=== PATIENT | male | born 1975 | race Two or more races ===

== ENCOUNTER 2020-05-04 13:41 | Inpatient (IN) | payer OTHER ==
--- NOTE | 2020-05-04 14:16 | EKG REPORT ---
SEVERITY:- ABNORMAL ECG - SINUS TACHYCARDIA MARKEDLY POSTERIOR QRS AXIS CONSIDER ANTERIOR INFARCT BORDERLINE PROLONGED QT INTERVAL : Confirmed by: Khushboo Beth MD 04-May-2020 14:15:29
--- NOTE | 2020-05-04 14:30 | ER Document Report ---
ED Medical Screen (RME) - General Chief Complaint: Abnormal Lab Results Stated Complaint: LIGHTHEADED,ABNORMAL LABS Time Seen by Provider: 05/04/20 14:05 Notes: HPI: 45-year-old male history of tachycardia presenting for evaluation of increased frequency of urination and increased thirst over the last 3 to 4 weeks. Patient [facility]. States that he had lab work done there yesterday and they told him that his blood glucose was greater than 600 and to come to the emergency department today. Patient reports some nausea vomiting over the last 3 to 4 days denies abdominal pain. Denies chest pain shortness of breath PHYSICAL EXAMINATION: Patient appears dehydrated. He is moderately tachycardic. No abdominal pain on palpation. discussed with Princess RIBEIRO regarding need for placement I have greeted and performed a rapid initial assessment of this patient. A comprehensive ED assessment and evaluation of the patient, analysis of test results and completion of medical decision making process will be conducted by an additional ED providers. Please note that clinical decision making for this patient was made during the 2019 pandemic of novel coronavirus which caused a significant strain on the healthcare system including at this particular facility. Criteria for admission discharge and level of care decisions as well as treatment decisions have necessarily changed - Related Data Allergies/Adverse Reactions: No Known Allergies Allergy (Verified 05/04/20 14:13) Physical Exam - Vital signs Vitals: Temp Pulse Resp BP Pulse Ox 98.0 F 131 H 20 141/97 H 97 05/04/20 14:02 05/04/20 14:02 05/04/20 14:02 05/04/20 14:02 05/04/20 14:02 Course - Vital Signs Vital signs: Temp Pulse Resp BP Pulse Ox 98.0 F 131 H 20 141/97 H 97 05/04/20 14:02 05/04/20 14:02 05/04/20 14:02 05/04/20 14:02 05/04/20 14:02
[2020-05-04] MEDS: NORMAL SALINE 1000 ML 1,000 ML IV PRN ×2 (14:54→16:43)
[2020-05-04 15:02] LABS: VENOUS BLOOD BASE EXCESS -7.6 mmol/L; VENOUS BLOOD HCO3 19.7 mmol/L (20-32); VENOUS BLOOD PCO2 46.2 mmHg (35-63); VENOUS BLOOD PH 7.25 (7.30-7.42)
[2020-05-04 15:21] LABS: ALBUMIN 4.9 g/dL (3.5-5.0); ALKALINE PHOSPHATASE 243 U/L (38-126); ASPARTATE AMINO TRANSFERASE 26 U/L (17-59); BILIRUBIN,DIRECT 0.4 mg/dL (0.0-0.4); BILIRUBIN,TOTAL 1.6 mg/dL (0.2-1.3); BLOOD UREA NITROGEN 35 mg/dL (7-20); CALCIUM 10.6 mg/dL (8.4-10.2); CHLORIDE 87 mmol/L (98-107); TOTAL PROTEIN 8.6 g/dL (6.3-8.2)
[2020-05-04 15:29] LABS: CARBON DIOXIDE 16 mmol/L (22-30)
[2020-05-04 15:35] LABS: APPEARANCE,URINE CLEAR; BILIRUBIN,URINE NEGATIVE (NEGATIVE); COLOR,URINE COLORLESS; GLUCOSE, URINE >=500 mg/dL (NEGATIVE); KETONES,URINE 20 mg/dL (NEGATIVE); LEUKOCYTE ESTERASE,URINE NEGATIVE (NEGATIVE); NITRITE,URINE NEGATIVE (NEGATIVE); PROTEIN,URINE NEGATIVE (NEGATIVE); URINE SPECIFIC GRAVITY 1.028; UROBILINOGEN,URINE NEGATIVE mg/dL (<2.0)
[2020-05-04 15:40] LABS: ANION GAP 29 (5-19)
[2020-05-04 15:42] LABS: GLUCOSE 1537 mg/dL (75-110); POTASSIUM 7.2 mmol/L (3.6-5.0)
[2020-05-04] MEDS ORDERED: INSULIN REG, HUMAN 100 UNIT/ML 3 ML VIAL (PYX) IV ONE ×2 (15:45→16:03)
--- NOTE | 2020-05-04 15:56 | ER Document Report ---
ED General - General Chief Complaint: High Blood Sugar Stated Complaint: LIGHTHEADED,ABNORMAL LABS Time Seen by Provider: 05/04/20 14:05 - HPI Notes: Patient is a 45-year-old male presents the emergency department for evaluation. [facility] He was told to come to the emergency room. He states that he has had polyuria and polydipsia, specifically nocturia, for the last several weeks. He denies any pain. He has had nausea with approximately 6 episodes of nonbloody, nonbilious emesis in the last 24 hours. Normal bowel movements. Patient has a history of hypertension, supposed to be taking lisinopril, but states that his labs were supposed to be fasting, so he stopped taking the lisinopril so it "would not mess up his labs." - Related Data Allergies/Adverse Reactions: No Known Allergies Allergy (Verified 05/04/20 14:13) Home Medications: Lisinopril, currently not taking Past Medical History - General Information source: Patient - Social History Smoking Status: Never Smoker Chew tobacco use (# tins/day): No Frequency of alcohol use: None Drug Abuse: None Family History: CVA - Father Patient has homicidal ideation: No - Past Medical History Cardiac Medical History: Reports: Hx Hypertension Review of Systems - Review of Systems Constitutional: Malaise, Weakness EENT: No symptoms reported Cardiovascular: No symptoms reported Respiratory: No symptoms reported Gastrointestinal: See HPI Genitourinary: See HPI Musculoskeletal: No symptoms reported Skin: No symptoms reported Neurological/Psychological: No symptoms reported Physical Exam - Vital signs Vitals: Temp Pulse Resp BP Pulse Ox 98.0 F 131 H 20 141/97 H 97 05/04/20 14:02 05/04/20 14:02 05/04/20 14:02 05/04/20 14:02 05/04/20 14:02 - Notes Notes: Vital signs reviewed, please refer to chart. Head is normocephalic, atraumatic. Pupils equal round, reactive to light. Neck is supple without meningismus. Heart is mildly tachycardic with normal S1-S2. Lungs are clear to auscultation bilaterally. Abdomen is soft, nontender, normoactive bowel sounds throughout. Extremities without cyanosis, clubbing. Posterior calves are nontender. Peripheral pulses are equal. Skin is warm and dry. Patient is awake, alert, oriented x3. Cranial nerves II - XII are grossly intact without focal neurological deficits. Strength is plus 5 out of 5 bilateral upper and lower extremities. Sensation is intact. Reflexes symmetrical. Intact [id number], rapid alternating movements, [id number]. Course - Re-evaluation Re-evalutation: 05/04/20 15:54 Patient presents emergency department for evaluation. He had laboratory investigations as ordered through triage. Initially he was tachycardic, IV fluids ordered. He is markedly hyperkalemic at this time, but likely has a total body potassium deficit. He does not have any QRS prolongation, EKG does reveal very mildly peaked T waves. He is started on insulin drip. Findings were explained to the patient. I will contact medicine for admission. 05/04/20 16:[address] De La Rosa. He requests an insulin bolus, and I had considered that given his hyperkalemia. He also request the administration of calcium, as well as blood cultures and a chest x-ray. These are all ordered. He states that the patient will not be able to be accepted to [facility] until his potassium is lower. A repeat basic metabolic panel is ordered for 1700. Patient remained stable. 05/04/20 18:21 Patient remained stable. Laboratory investigations reviewed, blood sugar remains over thousand, but potassium is improved. His bicarb is actually decreased at this time. I went to contact Dr. De La Rosa, was notified that he was in the room. - Vital Signs Vital signs: Temp Pulse Resp BP Pulse Ox 97.9 F 109 H 15 133/83 H 96 05/05/20 10:00 05/05/20 07:40 05/05/20 07:40 05/05/20 07:40 05/05/20 07:40 - Laboratory Results Result Diagrams: 05/05/20 02:27 05/05/20 07:01 Laboratory Results Interpreted: 05/04/20 05/04/20 05/04/20 14:47 14:47 14:47 RBC Hgb Hct MCHC RDW Lymph % (Auto) Absolute Neuts (auto) Seg Neutrophils % VBG pH 7.25 L VBG HCO3 19.7 L Sodium 132.3 L Potassium 7.2 H* Chloride 87 L Carbon Dioxide 16 L Anion Gap 29 H BUN 35 H Creatinine 1.59 H Est GFR ( Amer) 58 L Est GFR (MDRD) Non-Af 48 L Glucose 1537 H* Calcium 10.6 H Total Bilirubin 1.6 H Alkaline Phosphatase 243 H Total Protein 8.6 H Urine Glucose (UA) >=500 H Urine Ketones 20 H Urine Blood SMALL H 05/04/20 05/04/20 16:23 17:20 RBC 6.05 H Hgb 18.4 H Hct 58.2 H MCHC 31.7 L RDW 14.1 H Lymph % (Auto) 10.6 L Absolute Neuts (auto) 8.5 H Seg Neutrophils % 83.9 H VBG pH VBG HCO3 Sodium 146.5 H Potassium Chloride Carbon Dioxide 13 L Anion Gap 27 H BUN 34 H Creatinine 1.44 H Est GFR ( Amer) Est GFR (MDRD) Non-Af 54 L Glucose 1024 H* Calcium 10.3 H Total Bilirubin Alkaline Phosphatase Total Protein Urine Glucose (UA) Urine Ketones Urine Blood Critical Laboratory Results Reviewed: Yes Attending or Supervising Physician who Reviewed Labs: EMERSON WOODS - Radiology Results Critical Radiology Results Reviewed: No Critical Results - EKG Interpretation by Me Additional EKG results interpreted by me: 05/04/20 15:55 Sinus tachycardia with a rate of 123 beats minute. Right axis deviation. Question abnormal lead placement. Borderline prolonged QT interval but normal QRS duration. No acute ST changes concerning for ischemia or infarction. Critical Care Note - Critical Care Note Total time excluding time spent on procedures (mins): 40 Discharge - Discharge Clinical Impression: DKA (diabetic ketoacidoses), Hyperkalemia Condition: Stable Disposition: ADMITTED INPATIENT Admitting Provider: Rj (Hospitalist) Unit Admitted: [facility]
[2020-05-04] MEDS ORDERED: NORMAL SALINE 1000 ML 1,000 ML IV ONE (16:00)
[2020-05-04] MEDS ORDERED: CALCIUM GLUCONATE 1000 MG/10 ML INJ IV ONE (16:03)
--- NOTE | 2020-05-04 16:31 | RADIOLOGY REPORT (SQ) ---
EXAM DESCRIPTION: CHEST SINGLE VIEW IMAGES COMPLETED DATE/TIME: 05/04/2020 4:21 pm REASON FOR STUDY: new DKA COMPARISON: None. NUMBER OF VIEWS: One view. TECHNIQUE: Single frontal radiographic view of the chest acquired. LIMITATIONS: None. FINDINGS: LUNGS AND PLEURA: No opacities, masses or pneumothorax. No pleural effusion. MEDIASTINUM AND HILAR STRUCTURES: No masses. Contour normal. HEART AND VASCULAR STRUCTURES: Heart normal in size. Normal vasculature. BONES: No acute findings. HARDWARE: None in the chest. OTHER: No other significant finding. IMPRESSION: NO SIGNIFICANT RADIOGRAPHIC FINDING IN THE CHEST. TECHNICAL DOCUMENTATION: JOB ID: [id number] 2010 [employer]- All Rights Reserved Reading location - IP/workstation name: [email or web address]
[2020-05-04 16:43] LABS: ABSOLUTE BASOPHILS # (AUTO) 0.1 10^3/uL (0.0-0.2); ABSOLUTE LYMPHOCYTES (AUTO) 1.1 10^3/uL (0.5-4.7); ABSOLUTE MONOCYTES (AUTO) 0.5 10^3/uL (0.1-1.4); ABSOLUTE NEUT (AUTO) 8.5 10^3/uL (1.7-8.2); BASOPHILS % (AUTO) 0.5 % (0-2); HEMOGLOBIN 18.4 g/dL (13.5-17.0); LYMPHOCYTES % (AUTO) 10.6 % (13-45); MEAN CORPUSCULAR HEMOGLOBIN 30.5 pg (27.0-33.4); MEAN CORPUSCULAR HGB CONC 31.7 g/dL (32.0-36.0); MEAN CORPUSCULAR VOLUME 96 fl (80-97); PLATELET COUNT 315 10^3/uL (150-450); RED BLOOD COUNT 6.05 10^6/uL (4.35-5.55); RED CELL DISTRIBUTION WIDTH 14.1 % (11.5-14.0); SEGMENTED NEUTROPHILS % (AUTO) 83.9 % (42-78); TOTAL CELLS COUNTED % (AUTO) 100 %; WHITE BLOOD COUNT 10.1 10^3/uL (4.0-10.5)
[2020-05-04 16:45] LABS: HEMATOCRIT 58.2 % (37.9-51.0)
[2020-05-04 17:55] LABS: BLOOD UREA NITROGEN 34 mg/dL (7-20); CALCIUM 10.3 mg/dL (8.4-10.2)
[2020-05-04 18:08] LABS: CARBON DIOXIDE 13 mmol/L (22-30); CHLORIDE 107 mmol/L (98-107)
[2020-05-04 18:14] LABS: ANION GAP 27 (5-19)
[2020-05-04 18:15] LABS: GLUCOSE 1024 mg/dL (75-110)
[2020-05-04] MEDS ORDERED: ACETAMINOPHEN 325 MG TABLET PO PRN (18:26)
[2020-05-04] MEDS ORDERED: ONDANSETRON HCL INJ/PF 4 MG/2 ML SDV IV PRN (18:32)
[2020-05-04] MEDS ORDERED: DEXTROSE 50%-WATER 25 GM/50 ML DISP.SYRIN IV PRN ×2 (18:36)
[2020-05-04] MEDS ORDERED: GLUCAGON,HUMAN RECOMB 1 MG INJ IM PRN (18:36)
[2020-05-04] MEDS ORDERED: DEXTROSE 40% GEL 15 GM TUBE PO PRN ×2 (18:36)
[2020-05-04] MEDS ORDERED: 1/2 NORMAL SALINE 1,000 ML with POTASSIUM CHLORIDE 20 MEQ IV PRN ×2 (18:41)
[2020-05-04] MEDS ORDERED: POTASSI CL 20 MEQ/1/2NS 1L 1000 ML IV PRN (18:50)
--- NOTE | 2020-05-04 19:11 | PDOC H&P ---
History of Present Illness Admission Date/PCP: 05/04/20 18:30 Patient complains of: Polyuria, high blood sugar reading History of Present Illness: ALEXA ROBB is a 45 year old male with history of hypertension, who presents to the hospital with complaints of polyuria and evaluation of high blood glucose reading with his PCP. Patient has been experiencing polyuria for several days now. A week ago, he contacted his primary care provider who placed him on cipr ofloxacin for a week with suspicion of UTI. He has completed that outpatient. However his symptoms have worsened and developed nausea and vomiting. His who is at bedside notes that he has started having some confusion over the past 2 days. He has no prior diagnosis of diabetes. His endorses that he does not take any supplements. Only medications he takes are lisinopril and his rece nt course of Cipro. In the ER, he was noted to be hyperglycemic and hyperkalemic. He was started on IV insulin and fluids and referred to hospitalist service for admission. Past Medical History Cardiac Medical History: Reports: Hypertension Past Surgical History Past Surgical History: Reports: Orthopedic Surgery - Left ankle Social History Smoking Status: Never Smoker Electronic Cigarette use?: No Frequency of Alcohol Use: Rare Hx Recreational Drug Use: No - Advance Directive Resuscitation Status: Full Code Family History Family History: CVA - Father , Other - Does not know if there is any history of diabetes in the family Parental Family History Reviewed: Yes Children Family History Reviewed: Yes Sibling(s) Family History Reviewed.: Yes Medication/Allergy Home Medications: Lisinopril [Zestril] 2.5 mg PO DAILY 05/04/20 Allergies/Adverse Reactions: No Known Allergies Allergy (Verified 05/04/20 14:13) Review of Systems Constitutional: ABSENT: fatigue, fever(s) Eyes: PRESENT: visual disturbances - Not recent Ears: ABSENT: hearing changes Nose, Mouth, and Throat: ABSENT: headache(s) Cardiovascular: ABSENT: chest pain Respiratory: ABSENT: cough, dyspnea Gastrointestinal: PRESENT: nausea, vomiting. ABSENT: abdominal pain Genitourinary: ABSENT: dysuria Integumentary: ABSENT: diaphoresis Neurological: PRESENT: confusion. ABSENT: dizziness Psychiatric: ABSENT: anxiety Endocrine: PRESENT: polyuria Allergic/Immunologic: ABSENT: seasonal rhinorrhea Physical Exam Vital Signs: Temp Pulse Resp BP Pulse Ox 98.0 F 131 H 20 141/97 H 97 05/04/20 14:02 05/04/20 14:02 05/04/20 14:02 05/04/20 14:02 05/04/20 14:02 Intake & Output 05/03/20 05/04/20 05/05/20 06:59 06:59 06:59 Intake Total 1117 Output Total 940 Balance 177 Weight 103.5 kg General appearance: PRESENT: no acute distress, cooperative Head exam: PRESENT: normocephalic Eye exam: PRESENT: EOMI, PERRLA Neck exam: ABSENT: JVD Respiratory exam: PRESENT: clear to auscultation jared, symmetrical, unlabored. ABSENT: tachypnea, wheezes Cardiovascular exam: PRESENT: +S1, +S2, tachycardia. ABSENT: irregular rhythm GI/Abdominal exam: PRESENT: soft. ABSENT: rebound, rigid, tenderness Extremities exam: ABSENT: pedal edema Neurological exam: PRESENT: alert, awake, oriented to person, oriented to place, oriented to time, other - mild confusion noted but able to engage in conversation Psychiatric exam: PRESENT: unusual affect - overly pleasant and a little too jokeful Focused psych exam: ABSENT: pressured speech Skin exam: ABSENT: jaundice Results Laboratory Results: 05/04/20 16:23 05/04/20 17:20 05/04/20 05/04/20 05/04/20 14:47 14:47 14:47 WBC Cancelled RBC Cancelled Hgb Cancelled Hct Cancelled MCV Cancelled MCH Cancelled MCHC Cancelled RDW Cancelled Plt Count Cancelled Seg Neutrophils % Cancelled VBG pH 7.25 L VBG pCO2 46.2 VBG HCO3 19.7 L VBG Base Excess -7.6 Sodium 132.3 L Potassium 7.2 H* Chloride 87 L Carbon Dioxide 16 L Anion Gap 29 H BUN 35 H Creatinine 1.59 H Est GFR ( Amer) 58 L Glucose 1537 H* Calcium 10.6 H Total Bilirubin 1.6 H AST 26 Alkaline Phosphatase 243 H Total Protein 8.6 H Albumin 4.9 Urine Color Urine Appearance Urine pH Ur Specific [place] Urine Protein Urine Glucose (UA) Urine Ketones Urine Blood Urine Nitrite Ur Leukocyte Esterase Urine WBC (Auto) Urine RBC (Auto) 05/04/20 05/04/20 05/04/20 14:47 16:23 17:20 WBC 10.1 RBC 6.05 H Hgb 18.4 H Hct 58.2 H MCV 96 MCH 30.5 MCHC 31.7 L RDW 14.1 H Plt Count 315 Seg Neutrophils % 83.9 H VBG pH VBG pCO2 VBG HCO3 VBG Base Excess Sodium 146.5 H Potassium 5.0 D Chloride 107 Carbon Dioxide 13 L Anion Gap 27 H BUN 34 H Creatinine 1.44 H Est GFR ( Amer) > 60 Glucose 1024 H* Calcium 10.3 H Total Bilirubin AST Alkaline Phosphatase Total Protein Albumin Urine Color COLORLESS Urine Appearance CLEAR Urine pH 5.0 Ur Specific [place] 1.028 Urine Protein NEGATIVE Urine Glucose (UA) >=500 H Urine Ketones 20 H Urine Blood SMALL H Urine Nitrite NEGATIVE Ur Leukocyte Esterase NEGATIVE Urine WBC (Auto) 0 Urine RBC (Auto) 0 05/04/20 14:47 Troponin I < 0.012 Impressions: Chest X-Ray 05/04/20 16:04 IMPRESSION: NO SIGNIFICANT RADIOGRAPHIC FINDING IN THE CHEST. Assessment and Plan - Diagnosis (1) Hyperosmolar hyperglycemic state (HHS) Is this a current diagnosis for this admission?: Yes Plan: New onset diabetes. Initiated insulin drip protocol. Every hour Accu-Cheks. Frequent BMPs. Repeat VBG to evaluate metabolic acidosis. IVF. (2) Hypernatremia Is this a current diagnosis for this admission?: Yes Plan: Corrected sodium on admission is 160 which is up from 154 on initial BMP. He is certainly in a dehydrated state. Placed on 1/2 NS at 200cc/h. Monitor BMP closely q3H. Goal correction of 10mEq/24h to avoid cerebral edema. (3) Diabetes mellitus, new onset Is this a current diagnosis for this admission?: Yes Plan: New diagnosis for patient. Possibly type 2 diabetes given onset age and obesity BMI of 30. Will receive diabetes education tomorrow. Check A1c. Likely will require insulin therapy. (4) Acute metabolic encephalopathy Is this a current diagnosis for this admission?: Yes Plan: 2/2 HHS. At risk of cerebral edema given severe hyperglycemia. Will monitor closely with neuro checks every 4 hours during treatment. Cautious correction of hypernatremia. (5) Hyperkalemia Is this a current diagnosis for this admission?: Yes Plan: Secondary to HHS. Initial potassium was 7.2. Has improved to 5 after receiving insulin bolus and initiation of insulin drip. I suspect he may actually get hypokalemic with insulin drip so has been placed on a gentle K rider. Check BMP every 2-3 hours. (6) MIGUEL (acute kidney injury) Is this a current diagnosis for this admission?: Yes Plan: Continue IV fluids. Monitor renal function. (7) HTN (hypertension) Qualifiers: Hypertension type: essential hypertension Qualified Code(s): I10 - Essential (primary) hypertension Is this a current diagnosis for this admission?: Yes Plan: c/w Lisinopril 2.5mg daily. - Time Time Spent with patient: 35 or more minutes Anticipated Discharge Disposition: Home, Self Care Anticipated Discharge Timeframe: within 48 hours
[2020-05-04] MEDS: NORMAL SALINE 100 ML with INSULIN REGULAR, HUMAN 100 UNIT IV PRN ×2 (21:16)
--- NOTE | 2020-05-04 21:34 | Progress Note ---
Provider Note Provider Note: Evaluated patient per hospitalist request ( Dr. De La Rosa) for possible ICU admission due to hyperglycemia, hyperkalemia or HHS. Patient follows commands and mentating well even with estimated (corrected) plasma Na+ for hyperglycemia is elevated. Receiving Insulin IV per protocol and IVF and received IV bolus per ED. Patient does need ICU admission at this time. BMP ordered @ 2100.
[2020-05-04 21:42] LABS: BLOOD UREA NITROGEN 30 mg/dL (7-20); CALCIUM 10.2 mg/dL (8.4-10.2); POTASSIUM 4.4 mmol/L (3.6-5.0)
[2020-05-04 21:48] LABS: CARBON DIOXIDE 19 mmol/L (22-30); CHLORIDE 115 mmol/L (98-107)
[2020-05-04 21:53] LABS: ANION GAP 20 (5-19)
[2020-05-04 21:55] LABS: GLUCOSE 594 mg/dL (75-110)
[2020-05-04] MEDS ORDERED: 1/2 NORMAL SALINE 1,000 ML IV ONE (22:03)
[2020-05-04] MEDS: FAMOTIDINE 20 MG TABLET PO SCH (22:11)
[2020-05-04] MEDS: ENOXAPARIN SODIUM INJ 40 MG/0.4 ML DISP.SYRIN SUBCUT SCH (22:13)
[2020-05-04 23:40] LABS: ANION GAP 13 (5-19); BLOOD UREA NITROGEN 30 mg/dL (7-20); CALCIUM 10.1 mg/dL (8.4-10.2); CARBON DIOXIDE 21 mmol/L (22-30); CHLORIDE 120 mmol/L (98-107); GLUCOSE 354 mg/dL (75-110)
[2020-05-05] MEDS: NORMAL SALINE 100 ML with INSULIN REGULAR, HUMAN 100 UNIT IV PRN ×2 (00:28)
[2020-05-05] MEDS ORDERED: DEXTROSE 5%-1/2 NORMAL SALINE 1,000 ML IV ONE (01:00)
[2020-05-05] MEDS ORDERED: INSULIN GLARGINE,HUM.REC.ANLOG 1,000 UNIT/10 ML VIAL (PYX) SUBCUT PRN (01:21)
[2020-05-05] MEDS ORDERED: INSULIN GLARGINE,HUM.REC.ANLOG 1,000 UNIT/10 ML VIAL SUBCUT ONE (01:30)
--- NOTE | 2020-05-05 01:58 | EKG REPORT ---
SEVERITY:- ABNORMAL ECG - SINUS TACHYCARDIA RIGHT AXIS DEVIATION CONSIDER ANTERIOR INFARCT BORDERLINE PROLONGED QT INTERVAL : Confirmed by: Khushboo Beth MD 05-May-2020 01:58:20
[2020-05-05 02:41] LABS: VENOUS BLOOD BASE EXCESS -1.2 mmol/L; VENOUS BLOOD HCO3 22.9 mmol/L (20-32); VENOUS BLOOD PCO2 37.2 mmHg (35-63); VENOUS BLOOD PH 7.41 (7.30-7.42)
[2020-05-05 02:43] LABS: HEMATOCRIT 53.9 % (37.9-51.0); HEMOGLOBIN 18.7 g/dL (13.5-17.0); MEAN CORPUSCULAR HEMOGLOBIN 29.8 pg (27.0-33.4); MEAN CORPUSCULAR HGB CONC 34.7 g/dL (32.0-36.0); MEAN CORPUSCULAR VOLUME 86 fl (80-97); PLATELET COUNT 285 10^3/uL (150-450); RED BLOOD COUNT 6.28 10^6/uL (4.35-5.55); RED CELL DISTRIBUTION WIDTH 13.2 % (11.5-14.0); WHITE BLOOD COUNT 14.1 10^3/uL (4.0-10.5)
[2020-05-05 03:12] LABS: ALBUMIN 4.4 g/dL (3.5-5.0); ALKALINE PHOSPHATASE 146 U/L (38-126); ANION GAP 13 (5-19); ASPARTATE AMINO TRANSFERASE 26 U/L (17-59); BILIRUBIN,DIRECT 0.1 mg/dL (0.0-0.4); BILIRUBIN,TOTAL 1.2 mg/dL (0.2-1.3); BLOOD UREA NITROGEN 31 mg/dL (7-20); CALCIUM 10.1 mg/dL (8.4-10.2); CARBON DIOXIDE 24 mmol/L (22-30); CHLORIDE 123 mmol/L (98-107); GLUCOSE 158 mg/dL (75-110); POTASSIUM 3.9 mmol/L (3.6-5.0); TOTAL PROTEIN 8.4 g/dL (6.3-8.2)
[2020-05-05] MEDS ORDERED: POTASSI CL 20 MEQ/50 ML RIDER 20 MEQ/50 ML RTUPB IV ONE (03:21)
[2020-05-05] MEDS ORDERED: POTASSI CL 20 MEQ/D5-1/2NS 1L 1000 ML IV PRN (05:30)
[2020-05-05] MEDS ORDERED: INSULIN REG, HUMAN 100 UNIT/ML 3 ML VIAL (PYX) SUBCUT SCH (06:00)
[2020-05-05 08:14] LABS: BLOOD UREA NITROGEN 30 mg/dL (7-20); CALCIUM 9.1 mg/dL (8.4-10.2); POTASSIUM 4.4 mmol/L (3.6-5.0)
[2020-05-05 08:19] LABS: CARBON DIOXIDE 17 mmol/L (22-30); CHLORIDE 117 mmol/L (98-107)
[2020-05-05 08:20] LABS: ANION GAP 19 (5-19)
[2020-05-05 08:25] LABS: GLUCOSE 481 mg/dL (75-110)
[2020-05-05] MEDS: INSULIN LISPRO 100 UNIT/ML 3 ML VIAL SUBCUT SCH ×4 (08:28→22:21)
[2020-05-05] MEDS ORDERED: INSULIN GLARGINE,HUM.REC.ANLOG 1,000 UNIT/10 ML VIAL (PYX) SUBCUT SCH (08:30)
[2020-05-05] MEDS ORDERED: 1/2 NORMAL SALINE 1,000 ML IV ONE ×2 (08:44→16:55)
[2020-05-05] MEDS ORDERED: DEXTROSE 5%-WATER 1000 ML 1,000 ML IV PRN ×2 (08:50→16:56)
[2020-05-05] MEDS: HUM INSULIN NPH/REG INSULIN HM 100 UNIT/1 ML 3 ML SUBCUT SCH ×2 (09:22→16:53)
[2020-05-05] MEDS: ENOXAPARIN SODIUM INJ 40 MG/0.4 ML DISP.SYRIN SUBCUT SCH (10:12)
[2020-05-05] MEDS: FAMOTIDINE 20 MG TABLET PO SCH ×2 (10:12→22:26)
[2020-05-05] MEDS: LISINOPRIL 5 MG TABLET PO SCH (10:12)
--- NOTE | 2020-05-05 13:01 | PDOC PROGRESS REPORT ---
Subjective Date:: 05/05/20 Subjective:: Patient feels well today. Now off the insulin drip. Blood sugars are still run coral high. He had a mild headache before but has resolved without any intervention. Denies any nausea vomiting. Denies any confusion. Endorses significantly decreased nocturia last night. Reason For Visit: NK Physical Exam Vital Signs: Temp Pulse Resp BP Pulse Ox 97.9 F 109 H 15 133/83 H 96 05/05/20 10:00 05/05/20 07:40 05/05/20 07:40 05/05/20 07:40 05/05/20 07:40 Intake & Output 05/04/20 05/05/20 05/06/20 06:59 06:59 06:59 Intake Total 4077 222 Output Total 1490 Balance 2587 222 Weight 104.8 kg General appearance: PRESENT: no acute distress, cooperative Neck exam: ABSENT: JVD Respiratory exam: PRESENT: clear to auscultation jared, symmetrical, unlabored. ABSENT: tachypnea, wheezes Cardiovascular exam: PRESENT: RRR, +S1, +S2. ABSENT: tachycardia GI/Abdominal exam: PRESENT: soft. ABSENT: rebound, rigid, tenderness Extremities exam: ABSENT: pedal edema Neurological exam: PRESENT: alert, awake, oriented to person, oriented to place, oriented to time Results Laboratory Results: 05/05/20 02:27 05/05/20 07:01 05/04/20 05/04/20 05/04/20 14:47 14:47 14:47 WBC Cancelled RBC Cancelled Hgb Cancelled Hct Cancelled MCV Cancelled MCH Cancelled MCHC Cancelled RDW Cancelled Plt Count Cancelled Seg Neutrophils % Cancelled VBG pH 7.25 L VBG pCO2 46.2 VBG HCO3 19.7 L VBG Base Excess -7.6 Sodium 132.3 L Potassium 7.2 H* Chloride 87 L Carbon Dioxide 16 L Anion Gap 29 H BUN 35 H Creatinine 1.59 H Est GFR ( Amer) 58 L Glucose 1537 H* Calcium 10.6 H Magnesium Total Bilirubin 1.6 H AST 26 Alkaline Phosphatase 243 H Total Protein 8.6 H Albumin 4.9 Urine Color Urine Appearance Urine pH Ur Specific [place] Urine Protein Urine Glucose (UA) Urine Ketones Urine Blood Urine Nitrite Ur Leukocyte Esterase Urine WBC (Auto) Urine RBC (Auto) 05/04/20 05/04/20 05/04/20 14:47 16:23 17:20 WBC 10.1 RBC 6.05 H Hgb 18.4 H Hct 58.2 H MCV 96 MCH 30.5 MCHC 31.7 L RDW 14.1 H Plt Count 315 Seg Neutrophils % 83.9 H VBG pH VBG pCO2 VBG HCO3 VBG Base Excess Sodium 146.5 H Potassium 5.0 D Chloride 107 Carbon Dioxide 13 L Anion Gap 27 H BUN 34 H Creatinine 1.44 H Est GFR ( Amer) > 60 Glucose 1024 H* Calcium 10.3 H Magnesium Total Bilirubin AST Alkaline Phosphatase Total Protein Albumin Urine Color COLORLESS Urine Appearance CLEAR Urine pH 5.0 Ur Specific [place] 1.028 Urine Protein NEGATIVE Urine Glucose (UA) >=500 H Urine Ketones 20 H Urine Blood SMALL H Urine Nitrite NEGATIVE Ur Leukocyte Esterase NEGATIVE Urine WBC (Auto) 0 Urine RBC (Auto) 0 05/04/20 05/04/20 05/05/20 21:03 23:21 02:27 WBC RBC Hgb Hct MCV MCH MCHC RDW Plt Count Seg Neutrophils % VBG pH 7.41 VBG pCO2 37.2 VBG HCO3 22.9 VBG Base Excess -1.2 Sodium 154.0 H 154.3 H Potassium 4.4 4.0 Chloride 115 H 120 H Carbon Dioxide 19 L 21 L Anion Gap 20 H 13 BUN 30 H 30 H Creatinine 1.40 H 1.21 Est GFR ( Amer) > 60 > 60 Glucose 594 H* 354 H Calcium 10.2 10.1 Magnesium Total Bilirubin AST Alkaline Phosphatase Total Protein Albumin Urine Color Urine Appearance Urine pH Ur Specific [place] Urine Protein Urine Glucose (UA) Urine Ketones Urine Blood Urine Nitrite Ur Leukocyte Esterase Urine WBC (Auto) Urine RBC (Auto) 05/05/20 05/05/20 05/05/20 02:27 02:27 07:01 WBC 14.1 H RBC 6.28 H Hgb 18.7 H Hct 53.9 H MCV 86 D MCH 29.8 MCHC 34.7 RDW 13.2 Plt Count 285 Seg Neutrophils % VBG pH VBG pCO2 VBG HCO3 VBG Base Excess Sodium 159.8 H 152.9 H Potassium 3.9 4.4 Chloride 123 H 117 H Carbon Dioxide 24 17 L Anion Gap 13 19 BUN 31 H 30 H Creatinine 1.16 1.35 H Est GFR ( Amer) > 60 > 60 Glucose 158 H 481 H* Calcium 10.1 9.1 Magnesium 3.0 H Total Bilirubin 1.2 AST 26 Alkaline Phosphatase 146 H Total Protein 8.4 H Albumin 4.4 Urine Color Urine Appearance Urine pH Ur Specific [place] Urine Protein Urine Glucose (UA) Urine Ketones Urine Blood Urine Nitrite Ur Leukocyte Esterase Urine WBC (Auto) Urine RBC (Auto) 05/04/20 14:47 Troponin I < 0.012 Impressions: Chest X-Ray 05/04/20 16:04 IMPRESSION: NO SIGNIFICANT RADIOGRAPHIC FINDING IN THE CHEST. Assessment and Plan - Diagnosis (1) Diabetes mellitus, new onset Is this a current diagnosis for this admission?: Yes Plan: New diagnosis for patient. Possibly type 2 diabetes given onset age and obesity BMI of 30. Still hyperglycemic today. A1c is 10.5. Requires insulin therapy. Patient initiated on 70/30 insulin 25/25 units. Continue Accu-Cheks and sliding scale. We will adjust insulin regimen based on his blood sugar response. (2) Hypernatremia Is this a current diagnosis for this admission?: Yes Plan: Corrected sodium on admission is 157 today. Free water deficit is 2 L. Give half normal saline bolus. Will run on D5 W infusion. Recheck BMP this afternoon. (3) Hyperosmolar hyperglycemic state (HHS) Is this a current diagnosis for this admission?: Yes Plan: Resolved. (4) Acute metabolic encephalopathy Is this a current diagnosis for this admission?: Yes Plan: Mental status at baseline. (5) Hyperkalemia Is this a current diagnosis for this admission?: Yes Plan: Resolved (6) MIGUEL (acute kidney injury) Is this a current diagnosis for this admission?: Yes Plan: Secondary to dehydration. Improved but still not quite back to normal. Continue IV fluids. Monitor renal function. Monitor I's and O's strictly. (7) HTN (hypertension) Qualifiers: Hypertension type: essential hypertension Qualified Code(s): I10 - Ess ential (primary) hypertension Is this a current diagnosis for this admission?: Yes Plan: c/w Lisinopril 2.5mg daily. (8) Leukocytosis Is this a current diagnosis for this admission?: Yes Plan: May simply be secondary to HHS. Currently no evidence of infection. We will follow blood cultures. Chest x-ray is clear. Urinalysis is negative for infection. Check CBC in the morning. - Time Time Spent with patient: 15-24 minutes Anticipated Discharge Disposition: Home, Self Care Anticipated Discharge Timeframe: within 36 hours
[2020-05-05 15:48] LABS: ANION GAP 13 (5-19); BLOOD UREA NITROGEN 27 mg/dL (7-20); CALCIUM 9.2 mg/dL (8.4-10.2); CARBON DIOXIDE 22 mmol/L (22-30); CHLORIDE 118 mmol/L (98-107); GLUCOSE 364 mg/dL (75-110); POTASSIUM 4.1 mmol/L (3.6-5.0)
[2020-05-05] MEDS ORDERED: INSULIN GLARGINE,HUM.REC.ANLOG 1,000 UNIT/10 ML VIAL SUBCUT SCH (20:00)
[2020-05-05 20:41] LABS: OSMOLALITY,URINE 793 mOsm/kg (300-900)
[2020-05-05 20:47] LABS: URINE SODIUM 28 mmol/L (30-90)
[2020-05-05 22:18] LABS: ANION GAP 8 (5-19); BLOOD UREA NITROGEN 23 mg/dL (7-20); CALCIUM 8.5 mg/dL (8.4-10.2); CARBON DIOXIDE 22 mmol/L (22-30); CHLORIDE 114 mmol/L (98-107); GLUCOSE 333 mg/dL (75-110); POTASSIUM 3.6 mmol/L (3.6-5.0)
[2020-05-06] MEDS ORDERED: DEXTROSE 5%-1/2 NORMAL SALINE 1,000 ML IV PRN (01:36)
[2020-05-06 05:12] LABS: ANION GAP 8 (5-19); BLOOD UREA NITROGEN 20 mg/dL (7-20); CALCIUM 8.1 mg/dL (8.4-10.2); CARBON DIOXIDE 23 mmol/L (22-30); CHLORIDE 115 mmol/L (98-107); GLUCOSE 324 mg/dL (75-110); POTASSIUM 3.2 mmol/L (3.6-5.0)
[2020-05-06 05:36] LABS: ABSOLUTE BASOPHILS # (AUTO) 0.1 10^3/uL (0.0-0.2); ABSOLUTE LYMPHOCYTES (AUTO) 2.7 10^3/uL (0.5-4.7); ABSOLUTE MONOCYTES (AUTO) 0.5 10^3/uL (0.1-1.4); ABSOLUTE NEUT (AUTO) 4.2 10^3/uL (1.7-8.2); BASOPHILS % (AUTO) 0.7 % (0-2); EOSINOPHILS % (AUTO) 0.5 % (0-6); HEMATOCRIT 47.3 % (37.9-51.0); MEAN CORPUSCULAR HEMOGLOBIN 29.6 pg (27.0-33.4); MEAN CORPUSCULAR HGB CONC 33.7 g/dL (32.0-36.0); MEAN CORPUSCULAR VOLUME 88 fl (80-97); MONOCYTES % (AUTO) 6.8 % (3-13); PLATELET COUNT 165 10^3/uL (150-450); RED BLOOD COUNT 5.39 10^6/uL (4.35-5.55); RED CELL DISTRIBUTION WIDTH 13.3 % (11.5-14.0); TOTAL CELLS COUNTED % (AUTO) 100 %; WHITE BLOOD COUNT 7.4 10^3/uL (4.0-10.5)
[2020-05-06] MEDS ORDERED: HUM INSULIN NPH/REG INSULIN HM 100 UNIT/1 ML 3 ML SUBCUT SCH ×3 (08:00→16:00)
[2020-05-06] MEDS: INSULIN LISPRO 100 UNIT/ML 3 ML VIAL SUBCUT SCH ×4 (08:28→21:56)
[2020-05-06] MEDS ORDERED: POTASSIUM CHLORIDE 10 MEQ TABLET.ER PO ONE ×3 (09:00→21:53)
[2020-05-06] MEDS ORDERED: HUM INSULIN NPH/REG INSULIN HM 100 UNIT/1 ML 3 ML SUBCUT ONE ×2 (09:30→22:15)
[2020-05-06] MEDS ORDERED: 1/2 NORMAL SALINE 1,000 ML IV ONE (09:30)
[2020-05-06] MEDS: LISINOPRIL 5 MG TABLET PO SCH (09:37)
[2020-05-06] MEDS: FAMOTIDINE 20 MG TABLET PO SCH ×2 (09:37→21:56)
[2020-05-06] MEDS: ENOXAPARIN SODIUM INJ 40 MG/0.4 ML DISP.SYRIN SUBCUT SCH (09:37)
--- NOTE | 2020-05-06 15:14 | PDOC PROGRESS REPORT ---
Subjective Date:: 05/06/20 Subjective:: Patient continues to feel really well. He denies any shortness of breath, pain, nausea, vomiting, headaches. Reason For Visit: HHNK Physical Exam Vital Signs: Temp Pulse Resp BP Pulse Ox 98.0 F 104 H 18 128/86 H 97 05/06/20 11:11 05/06/20 14:00 05/06/20 11:11 05/06/20 11:11 05/06/20 11:11 Intake & Output 05/05/20 05/06/20 05/07/20 06:59 06:59 06:59 Intake Total 4077 4906 696 Output Total 1490 1495 960 Balance 2587 3411 -264 Weight 104.8 kg 104.8 kg 104.8 kg General appearance: PRESENT: no acute distress, cooperative Neck exam: ABSENT: JVD Respiratory exam: PRESENT: clear to auscultation jared, symmetrical, unlabored. ABSENT: tachypnea, wheezes Cardiovascular exam: PRESENT: RRR, +S1, +S2. ABSENT: tachycardia GI/Abdominal exam: PRESENT: soft. ABSENT: rebound, rigid, tenderness Neurological exam: PRESENT: alert, awake, oriented to person, oriented to place, oriented to time, oriented to situation Psychiatric exam: PRESENT: normal mood - Pleasant Results Laboratory Results: 05/06/20 04:31 05/06/20 04:31 05/05/20 05/05/20 05/05/20 14:34 20:02 21:42 WBC RBC Hgb Hct MCV MCH MCHC RDW Plt Count Seg Neutrophils % Sodium 152.5 H 144.2 Potassium 4.1 3.6 Chloride 118 H 114 H Carbon Dioxide 22 22 Anion Gap 13 8 BUN 27 H 23 H Creatinine 1.12 1.07 Est GFR ( Amer) > 60 > 60 Glucose 364 H 333 H Calcium 9.2 8.5 Urine Osmolality 793 05/06/20 05/06/20 04:31 04:31 WBC 7.4 RBC 5.39 Hgb 16.0 D Hct 47.3 MCV 88 MCH 29.6 MCHC 33.7 RDW 13.3 Plt Count 165 Seg Neutrophils % 56.0 Sodium 146.4 H Potassium 3.2 L Chloride 115 H Carbon Dioxide 23 Anion Gap 8 BUN 20 Creatinine 0.94 Est GFR ( Amer) > 60 Glucose 324 H Calcium 8.1 L Urine Osmolality 12/15/20 14:47 Troponin I < 0.012 Impressions: Chest X-Ray 05/04/20 16:04 IMPRESSION: NO SIGNIFICANT RADIOGRAPHIC FINDING IN THE CHEST. Assessment and Plan - Diagnosis (1) Hypernatremia Is this a current diagnosis for this admission?: Yes Plan: Hypernatremia persists. Corrected sodium has improved to 149 this morning from 157 yesterday morning. Urine osmolarity is quite high yesterday consistent with dehydration though he is urine sodium was in the 20s. We will repeat urine osmolarity and sodium today. I gave an order 1 L of 1/2 normal saline bolus this morning and have continued him on D5W until this afternoon. I would discontinue his D5W now. Have encouraged him to drink a lot of water. We will repeat a BMP now. Monitor urine output (2) Diabetes mellitus, new onset Is this a current diagnosis for this admission?: Yes Plan: New diagnosis for patient. Possibly type 2 diabetes given onset age and obesity BMI of 30. Still hyperglycemic today in the 300s despite high doses of insulin. A1c is 10.5. I will increase his premixed 70/30 insulin to 40/35 units twice daily. Continue to monitor Accu-Cheks. Received diabetes education today. (3) Hyperosmolar hyperglycemic state (HHS) Is this a current diagnosis for this admission?: Yes Plan: Resolved. (4) Acute metabolic encephalopathy Is this a current diagnosis for this admission?: Yes Plan: Resolved (5) Hyperkalemia Is this a current diagnosis for this admission?: Yes Plan: Resolved (6) MIGUEL (acute kidney injury) Is this a current diagnosis for this admission?: Yes Plan: Secondary to dehydration. Resolved (7) HTN (hypertension) Qualifiers: Hypertension type: essential hypertension Qualified Code(s): I10 - Essential (primary) hypertension Is this a current diagnosis for this admission?: Yes Plan: c/w Lisinopril 2.5mg daily. (8) Leukocytosis Is this a current diagnosis for this admission?: Yes Plan: Secondary to HHS and hemoconcentration from dehydration. Currently resolved on CBC today. - Time Time Spent with patient: 15-24 minutes Anticipated Discharge Disposition: Home, Self Care Anticipated Discharge Timeframe: within 24 hours
[2020-05-06 15:33] LABS: ANION GAP 6 (5-19); BLOOD UREA NITROGEN 19 mg/dL (7-20); CALCIUM 8.3 mg/dL (8.4-10.2); CARBON DIOXIDE 24 mmol/L (22-30); CHLORIDE 110 mmol/L (98-107); GLUCOSE 309 mg/dL (75-110); POTASSIUM 3.4 mmol/L (3.6-5.0)
[2020-05-06 16:35] LABS: OSMOLALITY,URINE 917 mOsm/kg (300-900)
[2020-05-06 16:53] LABS: URINE SODIUM 77 mmol/L (30-90)
[2020-05-07 07:36] LABS: ANION GAP 6 (5-19); BLOOD UREA NITROGEN 14 mg/dL (7-20); CALCIUM 8.2 mg/dL (8.4-10.2); CARBON DIOXIDE 26 mmol/L (22-30); CHLORIDE 109 mmol/L (98-107); GLUCOSE 262 mg/dL (75-110); POTASSIUM 3.7 mmol/L (3.6-5.0)
[2020-05-07] MEDS ORDERED: HUM INSULIN NPH/REG INSULIN HM 100 UNIT/1 ML 3 ML SUBCUT SCH (08:00)
[2020-05-07] MEDS: INSULIN LISPRO 100 UNIT/ML 3 ML VIAL SUBCUT SCH ×2 (08:44→10:53)
[2020-05-07] MEDS: FAMOTIDINE 20 MG TABLET PO SCH (09:29)
[2020-05-07] MEDS: LISINOPRIL 5 MG TABLET PO SCH (09:29)
[2020-05-07] MEDS: ENOXAPARIN SODIUM INJ 40 MG/0.4 ML DISP.SYRIN SUBCUT SCH (09:29)
[2020-05-07] MEDS ORDERED: METFORMIN HCL 500 MG TABLET PO ONE (12:00)
[2020-05-07 12:37] VITALS: BP 127/88
--- NOTE | 2020-05-07 15:03 | PDOC DISCHARGE SUMMARY ---
Impression - Admit/DC Date/PCP Admission Date/Primary Care Provider: 05/04/20 18:30 Discharge Date: 05/07/20 - Discharge Diagnosis (1) Hyperosmolar hyperglycemic state (HHS) Is this a current diagnosis for this admission?: Yes (2) Hypernatremia Is this a current diagnosis for this admission?: Yes (3) Diabetes mellitus, new onset Is this a current diagnosis for this admission?: Yes (4) Acute metabolic encephalopathy Is this a current diagnosis for this admission?: Yes (5) Hyperkalemia Is this a current diagnosis for this admission?: Yes (6) MIGUEL (acute kidney injury) Is this a current diagnosis for this admission?: Yes (7) HTN (hypertension) Is this a current diagnosis for this admission?: Yes (8) Leukocytosis Is this a current diagnosis for this admission?: Yes - Additional Information Resuscitation Status: Full Code Discharge Diet: Diabetic Discharge Activity: Activity As Tolerated Referrals: [facility] [Provider Group] (Mr. Martin has already talked to the CT office for the appointment. He will be going to the office once he leaves here.) Prescriptions: Metformin HCl [Metformin HCl ER] 500 mg PO DAILY #30 tab.er.24h Insulin NPH Hum/Reg Insulin Hm [Novolin 70-30 Flexpen] See Protocol SQ BIDACBS #2 insuln.pen Home Medications: Lisinopril [Zestril] 2.5 mg PO DAILY 05/04/20 Insulin NPH Hum/Reg Insulin Hm [Novolin 70-30 Flexpen] See Protocol SQ BIDACBS #2 insuln.pen 05/07/20 Metformin HCl [Metformin HCl ER] 500 mg PO DAILY #30 tab.er.24h 05/07/20 History of Present Illiness History of Present Illness: ALEXA MARTIN is a 45 year old male with history of hypertension, who presents to the hospital with complaints of polyuria and evaluation of high blood glucose reading with his PCP. Patient has been experiencing polyuria for several days now. A week ago, he contacted his primary care provider who placed him on ciprofloxacin for a week with suspicion of UTI. He has completed that outpatient. However his symptoms have worsened and developed nausea and vomiting. His who is at bedside notes that he has started having some confusion over the past 2 days. He has no prior diagnosis of diabetes. His endorses that he does not take any supplements. Only medications he takes are lisinopril and his recent course of Cipro. In the ER, he was noted to be hyperglycemic and hyperkalemic. He was started on IV insulin and fluids and referred to hospitalist service for admission. Hospital Course Hospital Course: Patient presented to the hospital with symptoms of hyperglycemia. Patient also had mild metabolic encephalopathy at the time of presentation. Blood work revealed findings suggestive of hyperglycemic hyperosmolar nonketotic state/HHS as well as severe hypernatremia which likely secondary to he is dehydrated state. Blood work also showed leukocytosis but no evidence of any infection. Likely from hemoconcentration. He was started on insulin drip. Urine studies were consistent with hypernatremia from dehydration and volume depletion. He was given IV fluids. He received quite a lot of IV fluids. He was later placed on D5W and occasionally required half-normal saline boluses. His sodium level improved. His HHS resolved and he was then transitioned to subcutaneous insulin. Notably this is a new diagnosis of diabetes mellitus likely type II for him. His hemoglobin A1c was quite high so he was started on insulin. He required up titration of his insulin regimen to get better control of his blood sugar also still likely require further titration in the outpatient setting. I did also initiate him on Metformin. He has received diabetes education and his was present for the diabetes education as well. He has been instructed to keep a log diary of his blood sugar readings articulating to see his primary care provider. He has received scripts for glucometer, lancets, test strips and KwikPen needles. He is in good shape. Encephalopathy has resolved and he is back to his baseline. His polyuria and polydipsia have also improved drastically. Notably he has hypernatremia was corrected cautiously and since yesterday he has been off IV fluids. Blood work this morning shows normal sodium level. Physical Exam Vital Signs: Temp Pulse Resp BP Pulse Ox 97.9 F 88 16 127/88 H 98 05/07/20 12:18 05/07/20 12:18 05/07/20 12:18 05/07/20 10:43 05/07/20 12:18 Intake & Output 05/06/20 05/07/20 05/08/20 06:59 06:59 06:59 Intake Total 4906 8134 357 Output Total 7515 0615 400 Balance 3411 1209 -43 Weight 104.8 kg 112.5 kg General appearance: PRESENT: no acute distress, cooperative Neck exam: ABSENT: JVD Respiratory exam: PRESENT: clear to auscultation jared, unlabored Cardiovascular exam: ABSENT: tachycardia GI/Abdominal exam: PRESENT: soft. ABSENT: rebound, rigid, tenderness Neurological exam: PRESENT: alert, awake, oriented to person, oriented to place, oriented to time, oriented to situation Results Laboratory Results: WBC 7.4 10^3/uL (4.0-10.5) 05/06/20 04:31 RBC 5.39 10^6/uL (4.35-5.55) 05/06/20 04:31 Hgb 16.0 g/dL (13.5-17.0) D 05/06/20 04:31 Hct 47.3 % (37.9-51.0) 05/06/20 04:31 MCV 88 fl (80-97) 05/06/20 04:31 MCH 29.6 pg (27.0-33.4) 05/06/20 04:31 MCHC 33.7 g/dL (32.0-36.0) 05/06/20 04:31 RDW 13.3 % (11.5-14.0) 05/06/20 04:31 Plt Count 165 10^3/uL (150-450) 05/06/20 04:31 Lymph % (Auto) 36.0 % (13-45) 05/06/20 04:31 [place] % (Auto) 6.8 % (3-13) 05/06/20 04:31 Eos % (Auto) 0.5 % (0-6) 05/06/20 04:31 Baso % (Auto) 0.7 % (0-2) 05/06/20 04:31 Absolute Neuts (auto) 4.2 10^3/uL (1.7-8.2) 05/06/20 04:31 Absolute Lymphs (auto) 2.7 10^3/uL (0.5-4.7) 05/06/20 04:31 Absolute Monos (auto) 0.5 10^3/uL (0.1-1.4) 05/06/20 04:31 Absolute Eos (auto) 0.0 10^3/uL (0.0-0.6) 05/06/20 04:31 Absolute Basos (auto) 0.1 10^3/uL (0.0-0.2) 05/06/20 04:31 Seg Neutrophils % 56.0 % (42-78) 05/06/20 04:31 Platelet Estimate Cancelled 05/04/20 14:47 VBG pH 7.41 (7.30-7.42) 05/05/20 02:27 VBG pCO2 37.2 mmHg (35-63) 05/05/20 02:27 VBG HCO3 22.9 mmol/L (20-32) 05/05/20 02:27 VBG Base Excess -1.2 mmol/L 05/05/20 02:27 Sodium 141.1 mmol/L (137-145) 05/07/20 05:51 Potassium 3.7 mmol/L (3.6-5.0) 05/07/20 05:51 Chloride 109 mmol/L (98-107) H 05/07/20 05:51 Carbon Dioxide 26 mmol/L (22-30) 05/07/20 05:51 Anion Gap 6 (5-19) 05/07/20 05:51 BUN 14 mg/dL (7-20) 05/07/20 05:51 Creatinine 0.74 mg/dL (0.52-1.25) 05/07/20 05:51 Est GFR ( Amer) > 60 (>60) 05/07/20 05:51 Est GFR (MDRD) Non-Af > 60 (>60) 05/07/20 05:51 Glucose 262 mg/dL (75-110) H 05/07/20 05:51 POC Glucose 302 mg/dL (70-110) H 05/07/20 10:40 Hemoglobin A1c % 10.5 % (4.7-6.0) H 05/05/20 02:27 Calcium 8.2 mg/dL (8.4-10.2) L 05/07/20 05:51 Magnesium 3.0 mg/dL (1.6-2.3) H 05/05/20 02:27 Total Bilirubin 1.2 mg/dL (0.2-1.3) 05/05/20 02:27 Direct Bilirubin 0.1 mg/dL (0.0-0.4) 05/05/20 02:27 Neonat Total Bilirubin Not Reportable 05/05/20 02:27 Neonat Direct Bilirubin Not Reportable 05/05/20 02:27 Neonat Indirect Bili Not Reportable 05/05/20 02:27 AST 26 U/L (17-59) 05/05/20 02:27 ALT 39 U/L (<50) 05/05/20 02:27 Alkaline Phosphatase 146 U/L (38-126) H 05/05/20 02:27 Troponin I < 0.012 ng/mL 05/04/20 14:47 Total Protein 8.4 g/dL (6.3-8.2) H 05/05/20 02:27 Albumin 4.4 g/dL (3.5-5.0) 05/05/20 02:27 Urine Color COLORLESS 05/04/20 14:47 Urine Appearance CLEAR 05/04/20 14:47 Urine pH 5.0 (5.0-9.0) 05/04/20 14:47 Ur Specific [place] 1.028 05/04/20 14:47 Urine Protein NEGATIVE mg/dL (NEGATIVE) 05/04/20 14:47 Urine Glucose (UA) >=500 mg/dL (NEGATIVE) H 05/04/20 14:47 Urine Ketones 20 mg/dL (NEGATIVE) H 05/04/20 14:47 Urine Blood SMALL (NEGATIVE) H 05/04/20 14:47 Urine Nitrite NEGATIVE (NEGATIVE) 05/04/20 14:47 Urine Bilirubin NEGATIVE (NEGATIVE) 05/04/20 14:47 Urine Urobilinogen NEGATIVE mg/dL (<2.0) 05/04/20 14:47 Ur Leukocyte Esterase NEGATIVE (NEGATIVE) 05/04/20 14:47 Urine WBC (Auto) 0 /HPF 05/04/20 14:47 Urine RBC (Auto) 0 /HPF 05/04/20 14:47 Urine Mucus (Auto) RARE /LPF 05/04/20 14:47 Urine Osmolality 917 mOsm/kg (300-900) H 05/06/20 15:30 Urine Sodium 77 mmol/L (30-90) 05/06/20 15:30 Urine Ascorbic Acid NEGATIVE (NEGATIVE) 05/04/20 14:47 Slides for Path Review Cancelled 05/04/20 14:47 05/04/20 14:47 Troponin I < 0.012 Impressions: Chest X-Ray 05/04/20 16:04 IMPRESSION: NO SIGNIFICANT RADIOGRAPHIC FINDING IN THE CHEST. Plan Time Spent: Less than 30 Minutes Stroke Is this a Stroke Patient?: No Acute Heart Failure Is this a Heart Failure Patient?: No
== END 2020-05-07 12:59 | disposition home or self-care (01) | DRG 637 ==
LOC: ER 13:41 → EH 18:30 → 3W 22:43
PROVIDERS: ADMIT Internal Medicine; ATTEND Internal Medicine
DX: E11.00 Type 2 diabetes mellitus with hyperosmolarity without nonketotic hyperglycemic-hyperosmolar coma (NKHHC) (principal); G93.41 Metabolic encephalopathy; E87.0 Hyperosmolality and hypernatremia; N17.9 Acute kidney failure, unspecified; E87.5 Hyperkalemia; I10 Essential (primary) hypertension; D72.829 Elevated white blood cell count, unspecified; E86.0 Dehydration; Z82.3 Family history of stroke
CPT/HCPCS: 36415; 71045; 80048; 80053; 81001; 82010; 82803; 82962; 83036; 83735; 83935; 84300; 84484; 85025; 85027; 87040; 93005; 93010; 96361; 96374; 96375; 99285; J0610; J1650; J1815; J3480; J7030; J7050; J7060